=== PATIENT | male | born 1995 | race Caucasian/White ===

== ENCOUNTER → 2019-05-21 | Outpatient (CLI) | payer SELFPAY ==
--- NOTE | 2019-05-21 10:34 | XR ---
Abdomen HISTORY: Ureteral stone Frontal view of the abdomen on [address] from outside institution dated 05/08/2019 There is a calcification at the level of the proximal right ureter as noted on CT. Calcification jaziel ures approximately 16 x 4 mm. Calcifications within the pelvis are equally phleboliths. There is no e vident bowel obstruction or pneumoperitoneum. Bone mineralization is normal. Lung bases are not inclu ded on exam. Partial sacralization of L5 noted on the left. IMPRESSION: Proximal right ureteral calculus.
== END | disposition home or self-care (01) ==
LOC: RADXRMAIN 08:56
PROVIDERS: ATTEND Urology
DX: N20.1 Calculus of ureter (principal)
CPT/HCPCS: 74018